=== PATIENT | female | born 2000 | race Two or more races ===

== ENCOUNTER 2022-04-23 14:48 | Emergency (ER) | payer OTHER ==
[~2022-04-23] VITALS: Ht 167.6 cm; Wt 103.4 kg
--- NOTE | 2022-04-23 15:00 | NUR ---
Dr Mims at the bedside for MSE.
[2022-04-23] MEDS ORDERED: IBUPROFEN 400 MG TABLET ONE (15:09)
[2022-04-23] MEDS ORDERED: ACETAMINOPHEN 325 MG TABLET ONE (15:09)
[2022-04-23] MEDS ORDERED: ONDANSETRON ODT 4 MG TAB.RAPDIS ONE (15:09)
[2022-04-23] MEDS ORDERED: IBUPROFEN 400 MG TABLET PO ONE (15:15)
[2022-04-23] MEDS ORDERED: ACETAMINOPHEN 325 MG TABLET PO ONE (15:15)
[2022-04-23] MEDS ORDERED: ONDANSETRON ODT 4 MG TAB.RAPDIS SL ONE (15:15)
[2022-04-23 17:20] LABS: *URINE HCG, QUAL NEGATIVE (NEGATIVE)
[2022-04-23 17:37] VITALS: BP 110/67
--- NOTE | 2022-04-23 17:37 | NUR ---
Patient discharged to home in stable condition. Written and verbal after care instructions given. Patient verbalizes understanding of instructions. Stressed follow up or return to ER for worsening s/s.
== END 2022-04-23 17:37 | disposition home or self-care (01) ==
LOC: ER 14:48
DX: R51.9 Headache, unspecified (principal)
CPT/HCPCS: 84703; A4663; Q0162